=== PATIENT | male | born 1985 | race Caucasian/White ===

== ENCOUNTER 2024-08-12 14:43 | Emergency (ER) | payer OTHER, SELFPAY ==
[2024-08-12 14:53] VITALS: BP 103/74
[2024-08-12 15:11] LABS: % Basophils 0.3 % (0-2); % Eosinophils 0.3 % (0-6); % Immature Granulocytes 0.1 % (0-0.5); % Monocytes 5.4 % (1.7-9.3); % Neutrophils 72.9 % (42.2-75.2); Absolute Lymphocytes 1.6 10^3/uL (1.2-3.4); Absolute Monocytes 0.4 10^3/uL (0.1-0.6); Absolute Neutrophils 5.4 10^3/uL (1.4-6.5); Hemoglobin 14.2 g/dL (13.0-18.0); Mean Corp Hgb Conc. 33.8 g/dL (33.0-37.0); Mean Corpuscular Hgb 28.5 pg (27.0-31.0); Mean Corpuscular Volume 84.2 fL (80.0-94.0); Mean Platelet Volume 8.7 fL (7.4-10.4); Nucleated Red Blood Cells % 0 % (-); Platelet Count 201 10^3/uL (130-400); Red Blood Cell Count 4.99 10^6/uL (4.70-6.10); Red Cell Dist. Width 13.5 % (11.5-14.5); Urine Albumin Negative (Neg - Trace); Urine Bilirubin Negative (Negative); Urine Character Clear (Clear); Urine Color Yellow; Urine Glucose Negative (Negative); Urine Ketone Negative (Negative); Urine Leukocyte Negative (Negative); Urine Nitrite Negative (Negative); Urine Occult Blood Negative (Negative); Urine Urobilinogen Negative (Neg - 1+); White Blood Cell Count 7.5 10^3/uL (4.8-10.8)
[2024-08-12 15:34] LABS: ALT (SGPT) 35 U/L (0-50); AST (SGOT) 26 U/L (17-59); Albumin 4.7 g/dl (3.5-5.0); Alkaline Phosphatase 83 U/L (38-126); Blood Urea Nitrogen 13 mg/dl (9-20); Calcium 9.5 mg/dl (8.4-10.2); Carbon Dioxide 28 mmol/L (22-30); Chloride 107 mmol/L (98-107); Glucose 84 mg/dl (70-99); Sodium 142 mmol/L (135-145); Total Bilirubin 0.6 mg/dl (0.2-1.3); Total Protein 6.8 g/dl (6.3-8.2); eGFR > 60.00
[2024-08-12 17:02] VITALS: BMI 24.0
--- NOTE | 2024-08-12 18:11 | ED.GENMED ---
History of Present Illness
General
Chief Complaint: Flank Pain
Source: patient
Exam Limitations: none
Time Seen by Provider: 08/12/24 17:43
Nursing documentation reviewed up to this point in time: agreed with
History of Present Illness
History of Present Illness:
The patient is a 39-year-old male with history kidney stones who presents to the emergency department for evaluation of intermittent right flank pain now with right testicular pain. Patient reports symptoms initially began about 3 weeks ago with
intermittent right flank pain which is radiating to his right groin. About 1 week ago he states as he was urinating he noticed some white flecks in his urine. He now reports mild intermittent pain on his right side/right groin. Over the past few
days he has noticed more localized pain in his right testicular region. Patient denies any known fever or chills. He denies any nausea, vomiting, anorexia. He denies any dysuria or clear hematuria. Patient states he occasionally does feel as if
he is unable to completely empty his bladder.
Of note�patient was treated for a UTI back in March with improvement in symptoms.
Patient is in a mild anonymous relationship with his for the past 3 years. No personal history of STI/STDs and is asymptomatic.
Patient was born with 1 functioning kidney. He recently moved to the area and has been unable to establish care with neurologist yet.
Review of Systems
Review of Systems
Allergies reviewed?: Yes
All Other Systems: ROS reviewed and negative except as documented in HPI and ROS
Phy Exam
Physical Exam
Physical Exam:
Vitals: Patient's vital signs are stable. Afebrile
General: Patient is very well appearing, no acute distress. Nontoxic appearing
Skin: Warm and dry, no rashes or lesions
Head: Normocephalic, atraumatic
Eyes: Sclera nonicteric.
Throat: Protecting airway. No tonsillar edema or exudates. Uvula midline. Clear speech no stridor
Neck: Normal ROM, no cervical spine tenderness, no meningismus
Cardiac: Regular rate and rhythm, no murmurs.
Pulm: Normal respiratory effort, no wheezes, rales, rhonchi heard on exam
.
Abdomen: Abdomen soft. Mild diffuse tenderness in right mid abdomen/suprapubic region. No rebound tenderness or guarding. No CVA tenderness or rash
Extremities: No evidence of cyanosis or edema
Neuro: AAOx3. Grossly intact.
Psychiatric: Normal affect.
Course
Orders/Labs/Results
Orders:
Orders
08/12/24 15:05
Complete Blood Count/With Diff Urgent
Comprehensive Metabolic Panel Urgent
Urinalysis Reflex To Culture Urgent
Date Specimen was Collected: 08/12/24
Time Specimen was Collected: 14:58
08/12/24 18:07
CT Abd/pelvis W Iv Cont Urgent
Comment:
Reason For Exam: Right flank pain, right inguinal pain
0.9% Sodium Chloride 1000 ml [Nss] 1,000 ml IV BOLUS
US Scrotum Urgent
Comment:
Reason For Exam: right scrotal pain/swelling
08/12/24 18:09
Add On - Microbiology Urgent
Tests Added?: urine culture
08/12/24 21:17
Ceftriaxone Sodium [Rocephin] 500 mg IM NOW STA
08/12/24 21:29
LevoFLOXacin [Levaquin] 500 mg PO NOW STA
08/13/24 08:00
LevoFLOXacin [Levaquin] 500 mg PO DAILY
08/12/24 15:05
08/12/24 15:05
Vital Signs
Initial and Last Documented VS:
Initial Vital Signs
Temp Pulse Resp BP Pulse Ox
98.4 F 72 16 103/74 100
08/12/24 14:53 08/12/24 14:53 08/12/24 14:53 08/12/24 14:53 08/12/24 14:53
Last Documented Vital Signs
Temp Pulse Resp BP Pulse Ox
98.4 F 72 16 109/72 100
08/12/24 14:53 08/12/24 14:53 08/12/24 14:53 08/12/24 19:00 08/12/24 14:53
MDM/Problems Addressed
Differential Diagnosis Includes:
Not limited to: Cystitis, pyelonephritis, ureterolithiasis, epididymitis, orchitis, testicular torsion, etc.
MDM/Problems Addressed:
The patient is a 39-year-old male who presented to the emergency department with intermittent right flank pain for the past few weeks now with right scrotal pain. His medical history includes having only one functional kidney and a recent episode of
urinary tract infection, which was treated with antibiotics. The flank pain has been intermittent, localized to the right side, with hx of 'white flakes' in the urine that have resolved. No current fever, chills, or other infectious symptoms. Vitals
and physical exam as above.
ED plan: Will check basic labs and UA. Plan for scrotal ultrasound to evaluate the testicular pain and tenderness and CT scan to assess for abdominal or renal issues, particularly concerning his solitary kidney. Will give IVF. Patient declines
analgesia.
Update: labs and UA without abnormal findings. US shows findings consistent with possible mild orchitis of right testicle. CT shows mild bladder wall thickening without other abnormalities, such as obstructing stone. Discussed findings at length
with patient. Patient has been in monogamous relationship with his for many years now without current concern for STI/STDs. Bladder scan without evidence of urinary retention. Patient remains very well appearing in no apparent distress. He
is nontoxic appearing. Based on hx - possible recently passed kidney stone. Will plan to cover patient with abx today for possible orchitis. Advised strict return precautions and f/u with both PCP and urology. Referral information given. Patient
comfortable with discharge home. Case discussed with attending physician.
Chronic conditions affecting care:
History of kidney stones
Acute Exacerbation and/or Progression of Chronic Illness:
N/A
*Pulse Oximetry
Patient hypoxic: no
Comment: 100% on room air
*EKG
Interpreted by ED Provider?: NA
*Air Conditioning Sheet Metal Installer Interpretation
Rate: Air Conditioning Sheet Metal Installer- N/A
*Critical Care Note
Total Time (30-74mins, 75-104mins- exclusive of procedures): Not Applicable
ED Attending Note
-
Portions of this chart may have been created with voice recognition software.� Occasional wrong word or��sound alike� substitutions may have occurred due to the inherent limitations of voice recognition software.
Discharge Plan
Departure
Patient Disposition: Home (Routine Discharge)
Date of Disposition: 08/12/24
Time of Disposition: 21:18
Patient with high blood pressure during this ER visit?: No
Condition: Good
Covid-19: Not Applicable
Discharge Problem:
Orchitis
Instructions: Epididymitis and orchitis, Kidney Stones (DC), Urinary tract infection in adults - ED discharge instructions
Prescriptions:
New
levofloxacin 500 mg tablet
500 mg PO DAILY 10 Days Qty: 10 0RF
Referrals:
Mane Kelsey Jr., MD [Active, Urology] - Call in 1-3 days for appt
UNKNOWN - PT DOES,NOT KNOW [Family Provider]
Activity Restrictions/Additional Instructions:
RETURN TO THE EMERGENCY DEPARTMENT WITH ANY FEVERS, CHILLS, WORSENING ABDOMINAL/FLANK PAIN, INTRACTABLE NAUSEA/VOMITING, WORSENING REDNESS, SWELLING, OR PAIN OF SCROTUM, OR ANY OTHER CONCERNS
- As discussed�your labs and urine were normal on the emergency department. A prescription has been sent to your pharmacy to treat for a possible UTI/testicular infection.
- It is important to stay well-hydrated. You can take Tylenol as as needed for pain. You can apply ice to your scrotum and should wear tight fitting underwear for scrotal support.
- Follow-up with primary care for further evaluation/management. You should contact the urologist tomorrow to schedule an appointment.
Monitor your symptoms closely and return to the emergency department with any acute worsening/new symptoms or any signs of worsening infection
Interventions
Interventions:
*Risk Screen - Suicide Last Done: 08/12/24 14:53
*General Assessment Last Done: 08/12/24 14:53
*Neglect/Abuse Screening Last Done: 08/12/24 17:05
*ED- Fall Risk Assessment Last Done: 08/12/24 17:05
*ED COVID-19 Vaccine History Last Done: 08/12/24 17:05
*Nursing Disposition Last Done: 08/12/24 21:46
KE-Jtxtve-[id number] Assessment Last Done: 08/12/24 17:05
ED-Male Genitourinary Assessment Last Done: 08/12/24 17:05
Discharge Date and Time
Discharge Date/Time: 08/12/24 21:48
Print Language: ALBANIAN
[2024-08-12] MEDS: NSS 1000 IV (18:23)
[2024-08-12 18:24] VITALS: BP 109/80
[2024-08-12 19:00] VITALS: BP 109/72
[2024-08-12] MEDS: ROCEPHIN 500 MG IM (21:34)
[2024-08-12] MEDS: LEVAQUIN 500 MG PO (21:35)
== END 2024-08-12 21:48 | disposition home or self-care (01) ==
LOC: EMR 14:43
PROVIDERS: Emergency Medicine; EMERGENCY PHYSICIAN Emergency Medicine
DX: N45.2 Orchitis (principal); R10.9 Unspecified abdominal pain; E78.5 Hyperlipidemia, unspecified; F41.9 Anxiety disorder, unspecified; Z87.442 Personal history of urinary calculi; Z87.440 Personal history of urinary (tract) infections; Q60.0 Renal agenesis, unilateral
CPT/HCPCS: 99284; 96372; 51798; 96360; 74177; 76870; 80053; 81003; 85025; 87086; 93976; Q9967

== ENCOUNTER 2024-10-01 14:30 | Emergency (ER) | payer OTHER, SELFPAY ==
[2024-10-01 14:48] VITALS: BP 117/80
[2024-10-01 15:43] LABS: Hematocrit 45.0 % (39.0-52.0); Hemoglobin 14.9 g/dL (13.0-18.0); Mean Corp Hgb Conc. 33.1 g/dL (33.0-37.0); Mean Corpuscular Volume 84.3 fL (80.0-94.0); Nucleated Red Blood Cells % 0 % (-); Platelet Count 204 10^3/uL (130-400); Red Cell Dist. Width 12.4 % (11.5-14.5)
[2024-10-01 15:58] LABS: Troponin I < 0.012 ng/ml
[2024-10-01 16:03] LABS: ALT (SGPT) 54 U/L (0-50); AST (SGOT) 34 U/L (17-59); Albumin 5.1 g/dl (3.5-5.0); Alkaline Phosphatase 78 U/L (38-126); Blood Urea Nitrogen 17 mg/dl (9-20); Calcium 9.7 mg/dl (8.4-10.2); Carbon Dioxide 29 mmol/L (22-30); Chloride 103 mmol/L (98-107); Glucose 81 mg/dl (70-99); Lipase 225 U/L (23-300); Potassium 4.0 mmol/L (3.5-5.1); Sodium 141 mmol/L (135-145); Total Protein 7.7 g/dl (6.3-8.2); eGFR > 60.00
[2024-10-01 18:33] VITALS: BP 128/80
[2024-10-01 19:01] VITALS: BP 119/81
[2024-10-01 19:40] VITALS: BP 137/89
[2024-10-01 20:00] VITALS: BP 126/90
--- NOTE | 2024-10-01 22:22 | ED.GENMED ---
History of Present Illness
General
Chief Complaint: Chest Pain
Source: patient
Exam Limitations: none
Time Seen by Provider: 10/01/24 18:57
Nursing documentation reviewed up to this point in time: agreed with
History of Present Illness
History of Present Illness:
Patient to ED wt complaint of chest pain, upper abd pain, lower abd pain. Symptoms started a few months ago and have been intermittent. Symptoms returned yesterday. No associated n/v/d. No SOB, dizziness, weakness, diaphoresis. No radiation of
pain. Brought to ED by spouse for eval.
Past History
Past History
ED Past Medical History: None
ED Past Surgical History: None
Review of Systems
Review of Systems
Allergies reviewed?: Yes
All Other Systems: ROS reviewed and negative except as documented in HPI and ROS
Constitutional: Reports no symptoms
EENT: Reports no symptoms
Respiratory: Reports no symptoms
Cardiac: Reports chest pain
ABD/GI: Reports abdominal pain (generalized)
: Reports no symptoms
Musculoskeletal: Reports no symptoms
Skin: Reports no symptoms
Neurological: Reports no symptoms
Psychiatric: Reports no symptoms
Phy Exam
General Physical Exam
General Presentation: well appearing and no apparent distress
General age: appears stated age
General Skin: warm and dry
General Habitus: normal
General Mental: alert
Cardiovascular Exam
Cardiovascular Exam: regular rate/rhythm and no edema
Gastrointestinal Exam
Gastrointestinal Exam: normal bowel sounds, soft, no organomegaly, no pulsatile mass and non distended
Palpation: generalized: Mild tenderness
Musculoskeletal Exam
Musculoskeletal Exam: full ROM
Skin Exam
Skin Exam: normal color, warm/dry and no rash
Psychiatric Exam
Psychiatric Exam: normal mood/affect
Scores
Heart Score for Chest Pain Patients
STEMI patient?: No
History: Slightly or Non-Suspicious
ECG: Normal
Age: </= 45 years
Risk Factors: No Risk Factors
Troponin: </= Normal Limit
Heart Score for Chest Pain Patients: 0
Heart Score Risk: 2.5% MACE over next 6 weeks
Course
Orders/Labs/Results
Orders:
Orders
10/01/24 14:54
Electrocardiogram (*1) Urgent
Reason for Study: Chest Pain
EKG- Treatment ONCE
CR Chest - 2 Views Urgent
Comment:
Reason For Exam: chest pain
10/01/24 15:07
Comprehensive Metabolic Panel Urgent
Lipase Urgent
Troponin I Urgent
10/01/24 15:08
Complete Blood Count/With Diff Urgent
10/01/24 19:08
US Abdomen Complete/Upper Urgent
Comment:
Reason For Exam: right sided pain
Abnormal Lab Results
10/01/24
15:07
ALT 54 H U/L
(0-50)
Albumin 5.1 H g/dl
(3.5-5.0)
10/01/24 15:08
10/01/24 15:07
Vital Signs
Initial and Last Documented VS:
Initial Vital Signs
Temp Pulse Resp BP Pulse Ox
98.1 F 77 18 117/80 100
10/01/24 14:48 10/01/24 14:48 10/01/24 14:48 10/01/24 14:48 10/01/24 14:48
Last Documented Vital Signs
Temp Pulse Resp BP Pulse Ox
98.9 F 68 16 126/90 99
10/01/24 21:19 10/01/24 20:15 10/01/24 20:15 10/01/24 20:00 10/01/24 22:25
*Radiology
Radiology exam reviewed: radiology read reviewed
*Pulse Oximetry
SaO2: 99
Oxygen Mode of Delivery: Room air
Patient hypoxic: no
*Critical Care Note
Total Time (30-74mins, 75-104mins- exclusive of procedures): Not Applicable
ED Attending Note
-
Portions of this chart may have been created with voice recognition software.� Occasional wrong word or��sound alike� substitutions may have occurred due to the inherent limitations of voice recognition software.
Discharge Plan
Departure
Patient Disposition: Home (Routine Discharge)
Date of Disposition: 10/01/24
Time of Disposition: 21:15
Patient with high blood pressure during this ER visit?: No
Condition: Good
Covid-19: Not Applicable
Discharge Problem:
Chest pain, Abdominal pain
Instructions: Chest Pain That Is Not Caused by the Heart (DC), Abdominal Pain
Prescriptions:
No Action
levofloxacin 500 mg tablet
500 mg PO DAILY 10 Days Qty: 10 0RF
Referrals:
NONE,* [Family Provider, Internal Medicine]
Activity Restrictions/Additional Instructions:
Follow up with your family doctor. Return to the emergency department immediately for any changes in/worsening of your symptoms
Interventions
Interventions:
*Risk Screen - Suicide Last Done: 10/01/24 14:52
*General Assessment Last Done: 10/01/24 14:52
*Neglect/Abuse Screening Last Done: 10/01/24 14:52
*ED- Fall Risk Assessment Last Done: 10/01/24 19:49
*ED COVID-19 Vaccine History Last Done: 10/01/24 14:52
*Nursing Disposition Last Done: 10/01/24 21:22
ED- Cardiac Assessment Last Done: 10/01/24 19:48
Discharge Date and Time
Discharge Date/Time: 10/01/24 21:23
Print Language: AMERICAN
== END 2024-10-01 21:23 | disposition home or self-care (01) ==
LOC: EMR 14:30
PROVIDERS: Emergency Medicine; EMERGENCY PHYSICIAN Student in an Organized Health Care Education/Training Program
DX: R07.9 Chest pain, unspecified (principal); R10.10 Upper abdominal pain, unspecified; R10.30 Lower abdominal pain, unspecified
CPT/HCPCS: 99285; 71046; 76700; 80053; 83690; 84484; 85025; 93005